=== PATIENT | female | born 1940 | race Caucasian/White ===

== ENCOUNTER 2020-02-11 11:42 | Emergency (ER) | payer MEDICARE ==
[~2020-02-11] VITALS: Ht 170.2 cm; Wt 95.2 kg
[2020-02-11] MEDS ORDERED: NORCO 5-325 TA1 EACH PO (14:26)
== END 2020-02-11 14:48 | disposition home or self-care (01) ==
LOC: ED 11:42
DX: S80.11XA Contusion of right lower leg, initial encounter (principal); S80.12XA Contusion of left lower leg, initial encounter; Z87.891 Personal history of nicotine dependence; W22.8XXA Striking against or struck by other objects, initial encounter
CPT/HCPCS: 73590; 85025; 99283-25